=== PATIENT | male | born 1995 | race African-American/Black ===

== ENCOUNTER 2017-05-30 21:09 | Emergency (ER) | payer MEDICAID ==
[~2017-05-30] VITALS: Ht 165.1 cm; Wt 76.8 kg
[2017-05-30] MEDS ORDERED: LIDOCAINE HCL 1% 20ML VIAL (Pyxis) INJ MC ONE (22:15)
[2017-05-30] MEDS ORDERED: BACITRACIN ZINC OINT UDPKT TOP ONE (22:15)
[2017-05-30] MEDS ORDERED: KETOROLAC 60MG/2ML VIAL IM ONE (22:15)
[2017-05-30] MEDS ORDERED: TETANUS, DIPHTHERIA, PERTUSSIS VAC/PF 0.5ML (>7YR OLD) IM ONE (22:15)
[2017-05-30 22:30] VITALS: BP 122/78
== END 2017-05-30 23:40 | disposition home or self-care (01) ==
LOC: ER 21:09
DX: S01.111A Laceration without foreign body of right eyelid and periocular area, initial encounter (principal); Y33.XXXA Other specified events, undetermined intent, initial encounter; Y93.67 Activity, basketball; Y92.39 Other specified sports and athletic area as the place of occurrence of the external cause
CPT/HCPCS: 12011; 90471; 90715; 96372; 99284; A4217; J1885; J3490; X7700; Z7610

== ENCOUNTER 2017-06-01 18:52 | Emergency (ER) | payer MEDICAID ==
[~2017-06-01] VITALS: Ht 165.1 cm; Wt 75.0 kg
[2017-06-01 18:59] VITALS: BP 121/47
== END 2017-06-01 19:50 | disposition left against medical advice (07) ==
LOC: ER 18:52
DX: Z53.21 Procedure and treatment not carried out due to patient leaving prior to being seen by health care provider (principal)

== ENCOUNTER 2017-06-06 09:27 | Emergency (ER) | payer MEDICAID ==
[~2017-06-06] VITALS: Ht 165.1 cm; Wt 78.0 kg
[2017-06-06 09:37] VITALS: BP 125/78
[2017-06-06] MEDS ORDERED: BACITRACIN ZINC OINT UDPKT TOP ONE (10:45)
== END 2017-06-06 10:52 | disposition home or self-care (01) ==
LOC: ER 09:53
DX: Z48.02 Encounter for removal of sutures (principal)
CPT/HCPCS: 99282